=== PATIENT | male | born 1980 | race African-American/Black ===

== ENCOUNTER 2019-08-27 23:36 | Inpatient (IN) | payer BC ==
[~2019-08-27] VITALS: Ht 177.8 cm; Wt 107.5 kg
[2019-08-27 23:40] VITALS: BP 151/44
[2019-08-28 00:20] LABS: ABSOLUTE NEUTROPHILS 6.4 thou/uL (1.4-8.2); BASOPHILS 0.6 % (0.0-2.0); EOSINOPHILS 2.3 % (0.0-3.0); HEMOGLOBIN 13.7 gm/dL (14.0-18.0); LYMPHOCYTES 27.2 % (24.0-44.0); MCH 31.7 pg (26.0-34.0); MCHC 33.4 g/dL (28.0-37.0); MCV 94.8 fL (80.0-100.0); MONOCYTES 4.3 % (1.0-8.0); PLATELET COUNT 284 thou/uL (150-400); POLYS 65.6 % (36.0-66.0); RBC 4.32 mil/uL (4.50-6.00); WBC 9.8 thou/uL (4.0-11.0)
[2019-08-28 00:31] LABS: ANION GAP 18 mmol/L (7-16); BUN 9 mg/dL (7-18); CALCIUM 9.5 mg/dL (8.5-10.1); CHLORIDE 104 mmol/L (98-107); CO2 19 mmol/L (21-32); CREATININE 1.7 mg/dL (0.7-1.3); GLUCOSE 121 mg/dL (74-106); POTASSIUM 3.4 mmol/L (3.5-5.1); SODIUM 141 mmol/L (136-145)
[2019-08-28 00:41] LABS: MAGNESIUM 2.4 mg/dL (1.8-2.4); TROPONIN-I <0.06 ng/mL (<0.06)
[2019-08-28 01:54] VITALS: BP 151/44
[2019-08-28 03:05] VITALS: BP 110/37
[2019-08-28 05:53] LABS: ALBUMIN 3.4 g/dL (3.4-5.0); DIRECT BILIRUBIN < 0.1 mg/dL (<0.1-0.2); SGOT 23 U/L (15-37); SGPT 24 U/L (30-65); TOTAL BILIRUBIN 0.4 mg/dL (<0.1-1.0); TOTAL PROTEIN 7.8 g/dL (6.4-8.2)
[2019-08-28 07:09] VITALS: BP 103/65
--- NOTE | 2019-08-28 08:00 | EKG ---
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
--- NOTE | 2019-08-28 08:06 | NUR ---
ASSUMED CARE OF PT DURING ADMISSION TO THE UNIT AROUND 0345. PT WAS DROWSY WITH SOME CONFUSION, ASKING WHAT HAD HAPPENED, WHERE HE WAS. ORIENTATION PROVIDED. VS HAVE BEEN STABLE SINCE ON UNIT. SR ON TELE, SBP IN 100'S. FLUIDS INFUSING. C/O GENERALIZED ACHING IN MUSCLES, PARTIAL RELIEF W/ REPOSITIONING. NO S/S OF SEIZURE ACTIVITY SINCE ADMISSION TO THIS UNIT. AT BEDSIDE. FALL AND SEIZURE PRECAUTIONS IN PLACE. PROGRESSING TOWARDS POC GOALS.
[2019-08-28 11:03] VITALS: BP 114/66
[2019-08-28 13:19] LABS: HEMATOCRIT 38.3 % (42.0-52.0); HEMOGLOBIN 12.7 gm/dL (14.0-18.0); MCH 31.2 pg (26.0-34.0); MCHC 33.1 g/dL (28.0-37.0); MCV 94.2 fL (80.0-100.0); RBC 4.06 mil/uL (4.50-6.00); RDW 12.8 % (10.5-14.5); WBC 9.7 thou/uL (4.0-11.0)
[2019-08-28 13:42] LABS: CREATININE 1.3 mg/dL (0.7-1.3); MAGNESIUM 2.2 mg/dL (1.8-2.4); POTASSIUM 4.2 mmol/L (3.5-5.1)
[2019-08-28 13:57] LABS: CHOLESTEROL 147 mg/dL (<200); HDL CHOLESTEROL 35 mg/dL (>40); LDL CHOLESTEROL 104 mg/dL (<100); TC:HDL 4.2 Ratio (Not establshd); TRIGLYCERIDE 43 mg/dL (<150); VLDL 9 mg/dL (<40)
[2019-08-28] MEDS ORDERED: KEPPRA1000 MG PO (14:49)
[2019-08-28 15:19] VITALS: BP 109/66
[2019-08-28 16:06] VITALS: BP 109/66
--- NOTE | 2019-08-28 17:22 | NUR ---
PT SEEN BY DR. MCCOLLUM ([facility]) MRI OF BRAIN DONE THIS AM WELL AN EEG. RESULTS COMMUNICATED TO PATIENT AND BY PHYSICIAN. NO FURTHER SEIZURE ACTIVITY. VSS. OKAY TO DISCHARGE AND FOLLOW UP ON SATURDAY WITH NEUROLOGIST AT . DISK OF MRI GIVEN TO . DISCHARGE INSTRUCTION REVIEWED. NEW SCRIPT FOR KEPPRA SENT TO PHARMACY. IV DISCONTINUED. TELE OFF. PATIENT LEFT FACILTY WITH SPOUSE. VOICED NO QUESTIONS OR CONCERNS.
[2019-08-29 07:08] LABS: GLYCOHEMOGLOBIN (HGB A1C) 5.8 % (4.8-5.6)
--- NOTE | 2019-08-29 09:37 | EKG ---
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1980 Requested By: Eva Coronado Order Number: [id number] MD: Pablo Colunga Measurements Intervals [place] Rate: 65 P: 40 [place]: 169 QRS: -11 QRSD: 115 T: 8 QT: 403 QTc: 419 Interpretive Statements Sinus rhythm Nonspecific intraventricular conduction delay Baseline wander in lead(s) V2 Compared to ECG 08/28/2019 00:42:29 No significant change was found Electronically Signed On 08-29-2019 9:37:25 411 DIRECTORY ASSISTANCE OPERATOR by Pablo Colunga [email or web address] <ELECTRONICALLY SIGNED> By: Pablo Colunga MD, [facility] 08/29/19 0937 0701 0701 Pablo Colunga MD, [facility] /EPI
== END 2019-08-28 17:35 | disposition home or self-care (01) | DRG 101 ==
LOC: ER 23:36 → EROBS 08-28 02:12 → 3W 08-28 02:12
PROVIDERS: Emergency Medicine; Internal Medicine; Nurse Practitioner Acute Care; ADMIT Hospitalist
DX: G40.909 Epilepsy, unspecified, not intractable, without status epilepticus (principal); N17.9 Acute kidney failure, unspecified; E87.6 Hypokalemia; Z82.49 Family history of ischemic heart disease and other diseases of the circulatory system; Z82.3 Family history of stroke; Z79.899 Other long term (current) drug therapy
CPT/HCPCS: 10879

== ENCOUNTER 2020-03-30 00:40 | Emergency (ER) | payer BC ==
[~2020-03-30] VITALS: Ht 177.8 cm; Wt 112.0 kg
[~2020-03-30 00:40] MED LIST: KEPPRA1000 MG PO
[2020-03-30 01:08] LABS: ABSOLUTE NEUTROPHILS 3.4 thou/uL (1.4-8.2); BASOPHILS 0.8 % (0.0-2.0); EOSINOPHILS 8.2 % (0.0-3.0); HEMATOCRIT 42.5 % (42.0-52.0); HEMOGLOBIN 14.4 gm/dL (14.0-18.0); LYMPHOCYTES 41.2 % (24.0-44.0); MCH 32.4 pg (26.0-34.0); MCHC 33.9 g/dL (28.0-37.0); MCV 95.7 fL (80.0-100.0); MONOCYTES 6.2 % (1.0-8.0); PLATELET COUNT 209 thou/uL (150-400); POLYS 43.6 % (36.0-66.0); RBC 4.44 mil/uL (4.50-6.00); RDW 13.5 % (10.5-14.5); WBC 7.9 thou/uL (4.0-11.0)
[2020-03-30 01:09] LABS: CALCIUM 8.7 mg/dL (8.5-10.1); CREATININE 1.8 mg/dL (0.7-1.3); POTASSIUM 3.1 mmol/L (3.5-5.1)
[2020-03-30 02:10] LABS: URINE BILIRUBIN NEGATIVE (Negative); URINE BLOOD 2+ (Negative); URINE CLARITY CLEAR; URINE COLOR YELLOW; URINE GLUCOSE-RANDOM* NEGATIVE (Negative); URINE KETONES NEGATIVE (Negative); URINE LEUKOCYTES-REFLEX NEGATIVE (Negative); URINE NITRITE-REFLEX NEGATIVE (Negative); URINE PROTEIN (DIPSTICK) 2+ (Negative); URINE SPECIFIC GRAVITY >= 1.030 (1.005-1.035); URINE UROBILINOGEN 0.2 E.U./dl (0.2-1.0)
[2020-03-30 02:30] LABS: BACTERIA-REFLEX 1-9 Few /HPF (None Seen); CASTS None Seen /LPF (None Seen); CRYSTALS None Seen /LPF (None Seen); MUCUS 0-3 Light strn/LPF (None Seen); SQUAMOUS 0-3 Few /LPF (0-3); URINE RBC 0-2 Rare /HPF (0-2); URINE WBC-REFLEX 0-5 Rare /HPF (0-5)
[2020-03-30 02:47] VITALS: BP 143/74
--- NOTE | 2020-03-31 07:48 | EKG ---
[facility] [place] [address] ELECTROCARDIOGRAM REPORT Name: EDGARCATHY WHALEN Room #: DEP [facility]#: [id number] Admission: 03/30/20 Attend Phys: Discharge: 03/30/20 Date of : [birth year] Report #: [id number] THIS REPORT FOR: cc: [facility] - Clinic physician unknown [facility] - Clinic physician unknown Pablo Colunga MD [facility] THIS REPORT FOR: //name// [facility] ED Test Date: 2020-03-30 Test Time: 00:42:58 Pat Name: CATHY HERNÁNDEZ Department: Room: Gender: Correspondence Analyst: : 1980 Requested By: Luiz Samuels Order Number: [id number] MD: Pablo Colunga Measurements Intervals [place] Rate: 90 P: 51 [place]: 175 QRS: 14 QRSD: 118 T: -3 QT: 368 QTc: 451 Interpretive Statements Sinus rhythm Incomplete right bundle branch block Nonspecific T wave abnormality Compared to ECG 08/28/2019 07:01:44 T wave abnormality is now present Electronically Signed On 03-31-2020 7:48:00 CDT by Pablo Colunga [email or web address] <ELECTRONICALLY SIGNED> By: Pablo Colunga MD, FACC 03/31/20 0748 0042 0042 Pablo Colunga MD, [facility] /EPI
== END 2020-03-30 03:17 | disposition home or self-care (01) ==
LOC: ER 00:40
PROVIDERS: Emergency Medicine
DX: G40.909 Epilepsy, unspecified, not intractable, without status epilepticus (principal); Z79.899 Other long term (current) drug therapy

== ENCOUNTER 2021-10-01 11:19 | Emergency (ER) | payer BC ==
[~2021-10-01] VITALS: Ht 177.8 cm; Wt 108.9 kg
--- NOTE | ~2021-10-01 | EMS ---
[address] [address] EMS Patient Care Report Name: CATHY HERNÁNDEZ Room #: DEP [facility]#: [id number] Admission: 10/01/21 Attend Phys: Discharge: 10/01/21 Date of : [birth year] Report #: [id number] THIS REPORT FOR: //name// Report Transmitted: 10/03/2021 10:32 EMS Care Summary [place], [place]/[facility] Incident [phone] @ 10/01/2021 10:42 Incident Location [address] [place] [address] Patient CATHY HERNÁNDEZ Male, 41 Years 1980 Patient Address [address] [place] [address] Patient History Seizures, Patient Allergies No known allergies, Patient Medications Levetiracetam, Chief Complaint SZ Disposition Transported No Lights/[place] Dispatch Reason Convulsions/Seizure Transported To [facility] Narrative UPON ARRIVAL WE FOUND OUR POSTICTAL 41 YEAR OLD MALE PATIENT, WITH A HX OF SZ, SITTING ON THE COUCH IN THE FRONT ROOM OF A RESIDENCE WITH FAMILY AND ALS P30 BY HIS SIDE. FAMILY STATES THE PATIENT HAS HAD 2 GRAND MAL SZ IN A 3 HR PERIOD. THE PATIENT'S LAST SZ WAS A YEAR AGO, SO HE RECENTLY DECIDED TO D/C HIS KEPPRA [facility] [address] [place] [address] EMS Patient Care Report Name: CATHY HERNÁNDEZ Room #: DEP ER [facility]#: [id number] Admission: 10/01/21 Attend Phys: Discharge: 10/01/21 Date of : [birth year] Report #: [id number] WITHOUT CONSULTING HIS PCP. THE PATIENT REQUESTS TRANSPORT TO [facility] AND HE BECAME MORE ORIENTED ENROUTE TO THE HOSPITAL. Initial Vitals @10:55P: 84,R: 18,BP: 129/69,Pain: 0/10,GCS: 14,Glucose: 94,SpO2: 100,Revised Trauma: 12,PR Suspected: false @11:13P: 84,R: 18,BP: 130/72,Pain: 0/10,GCS: 15,SpO2: 100,Revised Trauma: 12,PR Suspected: false Assessments @10:50MENTAL:Place Oriented,Person Oriented,Other,SKIN:HEENT:Eyes: Right Pupil: 3-mm,Eyes: Left Pupil: 3-mm,Head/Face: No Abnormalities,Neck/Airway: No Abnormalities,LUNG SOUNDS:General: No Abnormalities,ABDOMEN:General: No Abnormalities,PELVIS//GI:EXTREMITIES:Left Arm: No Abnormalities,Right Arm: No Abnormalities,Left Leg: No Abnormalities,Right Leg: No Abnormalities,PULSE:Radial: 2+ Normal,NEURO:Seizures, Impression Seizures Procedures @10:50 ALS Assessment Response: UnchangedSucceeded @10:55 3-Lead ECG Response: UnchangedSucceeded @10:58 IV Therapy - Saline Lock 0cc (20 ga) Site: Antecubital-Right Response: UnchangedSucceeded Timeline 10:40,Call Received 10:40,Dispatch Notified 10:42,Dispatched 10:42,En Route 10:48,On Scene 10:50,At Patient 10:50,ALS Assessment,Response: UnchangedSucceeded, 10:55,3-Lead ECG,Response: UnchangedSucceeded, 10:55,BP: 129/69 M,PULSE: 84,RR: 18 R,SPO2: 100 Ox,ETCO2: ,B,PAIN: 0,GCS: 14, 10:57,Depart Scene 10:58,IV Therapy - Saline Lock 0cc 20 ga Site: Antecubital-Right,Response: UnchangedSucceeded, 11:13,BP: 130/72 M,PULSE: 84,RR: 18 R,SPO2: 100 Ox,ETCO2: ,BG: ,PAIN: 0,GCS: 15, 11:14,At Destination 11:25,Call Closed [address] [address] EMS Patient Care Report Name: CATHY HERNÁNDEZ KOBY Room #: DEP ER [facility]#: [id number] Admission: 10/01/21 Attend Phys: Discharge: 10/01/21 Date of : [birth year] Report #: [id number] Disclaimer v1.1 Copyright 2021 [employer] This EMS Care Summary contains data elements from the applicable legal record (which may be displayed differently). It is designed to provide pertinent information for the following purposes: continuity of care, clinical quality, and state data reporting. The complete legal record is available to ED staff and administrators of the receiving hospital in [facility]'s Patient Tracker. All data is provided "as is."
[2021-10-01 11:59] LABS: BASOPHILS 0.5 % (0.0-2.0); EOSINOPHILS 0.9 % (0.0-3.0); HEMATOCRIT 39.8 % (42.0-52.0); HEMOGLOBIN 13.2 gm/dL (14.0-18.0); LYMPHOCYTES 11.1 % (24.0-44.0); MCH 31.4 pg (26.0-34.0); MCHC 33.1 g/dL (28.0-37.0); MCV 94.7 fL (80.0-100.0); MONOCYTES 5.8 % (1.0-8.0); PLATELET COUNT 204 thou/uL (150-400); POLYS 81.7 % (36.0-66.0); RDW 13.1 % (10.5-14.5)
[2021-10-01 12:21] LABS: CALCIUM 7.6 mg/dL (8.5-10.1); CREATININE 1.4 mg/dL (0.7-1.3); POTASSIUM 3.4 mmol/L (3.5-5.1)
[2021-10-01 14:14] LABS: URINE BILIRUBIN NEGATIVE (Negative); URINE BLOOD TRACE (Negative); URINE CLARITY CLEAR; URINE COLOR YELLOW; URINE GLUCOSE-RANDOM* NEGATIVE (Negative); URINE KETONES NEGATIVE (Negative); URINE LEUKOCYTES-REFLEX NEGATIVE (Negative); URINE NITRITE-REFLEX NEGATIVE (Negative); URINE PROTEIN (DIPSTICK) TRACE (Negative)
[2021-10-01 14:33] VITALS: BP 105/73
--- NOTE | 2021-10-02 07:51 | EKG ---
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
== END 2021-10-01 14:33 | disposition home or self-care (01) ==
LOC: ER 11:19
PROVIDERS: Physician Assistant
DX: E86.0 Dehydration (principal); R56.9 Unspecified convulsions; E87.6 Hypokalemia